=== PATIENT | male | born 1955 | race Caucasian/White ===

== ENCOUNTER 2017-04-25 18:08 | Emergency (ER) | payer MEDICARE ==
[~2017-04-25] VITALS: Ht 185.4 cm; Wt 109.0 kg
[~2017-04-25 18:08] MED LIST: ASPI-653 PO; DICL100G20 TP; LISI10TA PO; METF1000 PO
[2017-04-25 18:21] VITALS: BP 156/91; PULSE 58; RESP 21; O2SAT 99
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
[2017-04-25] MEDS ORDERED: Albuterol-Ipratropium 3 mL Inhalation Solution NEB ONE (18:45)
[2017-04-25] MEDS ORDERED: MethylprednisoLONE Sodium Succinate 62.5 mg/mL 2 mL Inj IVPUSH ONE (18:45)
--- NOTE | 2017-04-25 19:08 | DRSVH ---
PROCEDURE: X-RAY CHEST ONE VIEW, PORTABLE ([id number]) INDICATIONS: CHEST PAIN TECHNIQUE: One view of the chest was acquired. COMPARISON: [facility], CR, XR CHEST 2VW, 06/01/2015, 16:52. FINDINGS: Surgical changes and devices: Lower cervical spine fusion. Lungs and pleura: No pleural effusions or pneumothorax. Lungs are clear. Mediastinum: Mediastinal contours appear normal. Heart size is normal. Bones and chest wall: No suspicious bony lesions. Overlying soft tissues appear unremarkable. IMPRESSION: No acute cardiopulmonary disease. Dictated by: Mary Lou Bradford M.D. on 04/25/2017 at 19:06 Approved by: Mary Lou Bradford M.D. on 04/25/2017 at 19:07
[2017-04-25 19:18] LABS: BASOPHILS % (AUTO) 0.2 % (0-3); EOSINOPHILS % (AUTO) 1.5 % (0-5); MONOCYTES % (AUTO) 7.1 % (4-12); Mean Corpuscular Hemoglobin 29.7 pg (27.0-35.0); Mean Corpuscular Volume 85.9 fL (81-100); NEUTROPHILS % (AUTO) 67.6 % (40-74); Platelet Count 185 bil/L (150-400)
[2017-04-25 19:34] VITALS: PULSE 53; RESP 16; O2SAT 98
[2017-04-25 19:40] LABS: Magnesium 1.7 mg/dL (1.6-2.6)
[2017-04-25 19:52] LABS: TROPONIN T < 0.010 ug/L (0.0-0.011)
--- NOTE | 2017-04-25 21:12 | DRSVH ---
PROCEDURE: CT ANGIO CHEST PULMONARY EMBOLISM ([id number]) INDICATIONS: chest pain and shortness of breath TECHNIQUE: After the administration of intravenous contrast, 2 mm thick sections acquired from the pulmonary api mireya to the posterior costophrenic angles. 3-dimensional maximum intensity projection (MIP) coronal a nd sagittal reformats were then acquired through the thorax. For radiation dose reduction, the follo wing was used: automated exposure control, adjustment of mA and/or kV according to patient size. COMPARISON: [facility], CR, XR CHEST 1VW (PORTABLE), 04/25/2017, 18:21. FINDINGS: Image quality: Excellent. Pulmonary arteries: Pulmonary arteries are normal in size, and demonstrate no intraluminal filling d efects to suggest central pulmonary embolism. Lungs and pleura: Bibasilar dependent atelectasis. Lungs are otherwise clear. No pleural effusions or pneumothorax. Central and peripheral airways are patent. Mediastinum: Heart size is normal, without pericardial effusion. No mediastinal or hilar adenopathy . Thoracic aorta is normal in caliber and enhancement. There is concentric thickening of distal esop hagus. Bones and chest wall: No suspicious bony lesions. Ribs and thoracic spine appear intact throughout. Thyroid gland is normal. No axillary or supraclavicular adenopathy. Abdomen: Visualized upper abdominal solid organs appear normal in the early arterial phase of enhanc ement. IMPRESSION: 1. No evidence for acute central pulmonary embolism. 2. Concentric thickening of the distal esophagus. Differential diagnosis include esophagitis versus e sophageal neoplasm. Recommend clinical correlation. If clinically indicated, upper endoscopy may be o btained for further evaluation. Dictated by: Mary Lou Bradford M.D. on 04/25/2017 at 21:06 Approved by: Mary Lou Bradford M.D. on 04/25/2017 at 21:11
[2017-04-25 21:15] VITALS: BP 121/60; PULSE 57; RESP 15; O2SAT 99
[2017-04-25 23:05] VITALS: BP 134/70; PULSE 59; RESP 18; O2SAT 96
[2017-04-25] MEDS ORDERED: _Proair 200 Puff/8.5 GM Inhaler INHALATION PRN (23:05)
[2017-04-25 23:06] VITALS: BP 134/70; PULSE 59; RESP 18; O2SAT 96
== END 2017-04-25 22:58 | disposition home or self-care (01) ==
LOC: SED 18:08
DX: R07.89 Other chest pain (principal); J98.01 Acute bronchospasm; J70.5 Respiratory conditions due to smoke inhalation; E11.9 Type 2 diabetes mellitus without complications; I10 Essential (primary) hypertension; Z87.891 Personal history of nicotine dependence; Z88.0 Allergy status to penicillin; Z79.82 Long term (current) use of aspirin; Z79.84 Long term (current) use of oral hypoglycemic drugs
CPT/HCPCS: 36415; 71010; 71275; 80053; 82948; 83735; 84484; 85025; 85378; 93005; 96374; 99285; J2930; J7620; Q9967